=== PATIENT | female | born 1960 | race African-American/Black ===

== ENCOUNTER 2016-07-09 18:06 | Emergency (ER) | payer MEDICAID, OTHER ==
[~2016-07-09] VITALS: Ht 157.5 cm; Wt 59.0 kg
[2016-07-09] MEDS ORDERED: KETOROLAC 60MG/2ML VIAL IM ONE (23:45)
[2016-07-10 10:46] LABS: HEMATOCRIT. 45.7 % (36.0-48.0); HEMOGLOBIN. 15.4 g/dL (12.0-16.0); MEAN CORPUSCULAR VOLUME 88.8 fL (81.0-99.0); PLATELET 338 x1000/uL (130-400); RED BLOOD CELL COUNT 5.15 mill/uL (4.2-5.4); RED CELL DISTRIBUTION WIDTH 13.4 % (11.6-14.6)
[2016-07-10 10:53] LABS: CHLORIDE 105 mEq/L (98-107)
[2016-07-10 10:58] LABS: CARBON DIOXIDE 27 mEq/L (21-32)
[2016-07-10 11:04] LABS: PLATELET ESTIMATE NORMAL
[2016-07-10 11:27] LABS: *AMPHETAMINES SCREEN URINE NEGATIVE (NEGATIVE); *BARBITURATES SCREEN URINE NEGATIVE (NEGATIVE); *BENZODIAZEPINES SCREEN URINE NEGATIVE (NEGATIVE); *COCAINE SCREEN URINE NEGATIVE (NEGATIVE); CANNABINOID URINE SCREEN NEGATIVE (NEGATIVE); METHADONE URINE SCREEN NEGATIVE (NEGATIVE); OPIATES URINE SCREEN NEGATIVE (NEGATIVE); PHENCYCLIDINE URINE SCREEN NEGATIVE (NEGATIVE)
[2016-07-10 17:57] VITALS: BP 139/86
== END 2016-07-10 18:03 ==
LOC: ER 18:07
DX: F41.9 Anxiety disorder, unspecified (principal); R45.851 Suicidal ideations; R51 Headache; I10 Essential (primary) hypertension; F17.210 Nicotine dependence, cigarettes, uncomplicated
CPT/HCPCS: 36415; 80048; 80305; 81025; 85007; 85027; 96372; 99285; J1885; 99284